=== PATIENT | female | born 1950 | race Caucasian/White ===

== ENCOUNTER 2016-07-18 07:22 | Day surgery (SDC) | payer MEDICARE, MEDICAID ==
[~2016-07-18 07:22] MED LIST: ACTOS45 MG PO; AMARYL 2MG TABLE2 MG PO; ASPIRIN325 M1 PO; CALCIUM 500 + D1 TA1 PO; COZAAR50 MG PO; FUROSEMIDE20 MG PO; LASIX 20MG. TAB20 MG PO; LEVOTHYROXINE0.1 MG PO; LIPITOR20 M1 PO; LORTAB 500 MG-71 TAB PO; NITROQUICK0.4 MG SL; RANITIDINE HCL150 MG PO; SEPTRA DS 800 M1 TAB PO; TRICOR145 MG PO
[2016-07-18 08:08] LABS: HEMOGLOBIN 12.9 g/dL (12.2-16.2); LYMPH # 1.7 K/mm3 (0.7-4.5); LYMPH % 26.6 % (10-50.0)
--- NOTE | 2016-07-18 11:26 | RADIOLOGY REPORT PS360 ---
CARDIAC CATHETERIZATION DATE OF CATHETERIZATION:07/18/2016 9:28 AM PROCEDURES: 1. Left heart catheterization 2. Left ventriculogram 3. Selective coronary angiogram 4. Selective angiography of the left internal mammary artery to the LAD 5. Selective engagement of the saphenous vein graft to the circumflex artery 6. FFR to the dominant right coronary artery 7. Drug-eluting stent deployment to the mid dominant right coronary artery INDICATION FOR TEST: 1. Coronary artery disease 2. History of coronary artery bypass grafting 3. Abnormal Myoview 4. Angina pectoris class III 5. Ischemic response to adenosine in the dominant right coronary artery Informed consent was obtained prior to the procedure. COMPLICATIONS: None ESTIMATED BLOOD LOSS: Less than 10 ml. TECHNIQUE: One percent lidocaine was used to anesthetize the right groin. The right femoral artery was accessed via the Seldinger technique. A 4-Pashto sheath was placed in the right femoral artery. Over a 3 J-wire a JL 4 JR4 Amplatz 1 catheter were used for the diagnostic procedure. There is a hazy at least 50% stenosis in the right coronary artery which did not meet angiographic criteria for stenting and furthermore did not correlate to the abnormal Myoview. Nevertheless patient was having worsening angina pectoris and this vessel was then subjected to adenosine to determine if the indeterminate lesion was ischemia producing. 7000 units of heparin was then administered intravenously and the 4 Pashto sheath was exchanged for a 6 Pashto sheath. After 10 minutes and during preparation and ACT was measured at 216 seconds therefore an additional 2000 units of heparin was administered intravenously. A JR4 guide catheter was placed in the ascending aorta and an FFR wire was normalized. The guide catheter was used intubate the right coronary artery and the FFR wire was placed into the posterior lateral ventricular branch. Adenosine was infused in the FFR index dropped to 0.76. This was an ischemic response to adenosine therefore 3 mm x 22 mm resolute stent was deployed at 14 niall reducing the stenosis to 40%. A 3.25 x 8 mm noncompliant U for your balloon was then placed in the mid segment of the stent at the stenotic lesion and deployed at 22 niall for 30 seconds there by reducing the stenosis to 10%. There was spasm distally therefore 800 mcg of nitroglycerin was administered intra-coronary and repeat angiography demonstrated there is excellent transitioning proximally and distally with the stent with good reduction of the focal stenotic lesion at the level of the RV marginal branch. At this point the apparatus was removed the groin was reprepped gloves were changed sheath was removed good hemostasis was achieved using Perclose device patient was transferred to the postop holding area in stable condition. The closing ACT was measured as out of range greater than 400 seconds. Effient 60 mg was given on the table prior to the resolute stent being deployed but after the ischemic response to adenosine. ANGIOGRAPHIC RESULTS: 1. The left main artery has distal 40% stenosis 2. The left anterior descending artery is proximally occluded 3. The circumflex artery gives rise to a high obtuse marginal artery probably ramus intermedius as well as 2 other medium sized obtuse marginal arteries. No significant lesion greater than 20% is identified in the obtuse marginal arteries however the true circumflex artery running in the AV groove has a 90% stenosis immediately after giving rise to the terminal obtuse marginal artery 4. The right coronary artery is a dominant vessel has proximal 10% stenosis with a 50% hazy calcified stenosis in the mid segment at the junction of the RV marginal branch. 20% stenoses are identified distally. The posterior descending artery has a proximal 20% stenosis while the posterior lateral ventricular branch has mild luminal irregularities of 10% 5. The [place] ventriculogram reveals normal ejection fraction estimated at 65% 6. The left ventricular end-diastolic pressure 10 mmHg 7. The saphenous vein graft to the left coronary artery is ostially occluded 8. The left internal mammary artery to the LAD is a widely patent graft however the LAD itself is a smaller caliber vessel with moderate diffuse vasculopathic appearance with no significant focal stenosis IMPRESSION: 1. Severe [place] coronary artery disease as described above 2. Patent [place] to a small caliber vasculopathic appearing LAD 3. Occluded saphenous vein graft to one of the coronary arteries 4. Angiographically indeterminate disease in the mid dominant right coronary artery 5. Ischemic response to adenosine involving the mid dominant right coronary artery producing FFR index of 0.76 6. Successful drug-eluting stent deployment followed by post stent deployment post dilatation with a high pressure 3.25 x 8 mm balloon 7. Persistent severe stenosis and a small circumflex artery which is not amenable either clinically or percutaneously to revascularization PLAN: 1. Effient and aspirin 2. Risk factor modification 3. High intensity stent with LDL goal less than 70 4. Referral to cardiac rehabilitation
[2016-07-18 15:26] VITALS: BP 118/54
== END 2016-07-18 15:32 | disposition home or self-care (01) ==
LOC: CATHLAB 07:22
PROVIDERS: Internal Medicine
PROC: B2131ZZ Fluoroscopy of Multiple Coronary Artery Bypass Grafts using Low Osmolar Contrast (ICD-10-PCS; 2016-07-18)
PROC: B2111ZZ Fluoroscopy of Multiple Coronary Arteries using Low Osmolar Contrast (ICD-10-PCS; 2016-07-18)
PROC: B2181ZZ Fluoroscopy of Left Internal Mammary Bypass Graft using Low Osmolar Contrast (ICD-10-PCS; 2016-07-18)
PROC: B2151ZZ Fluoroscopy of Left Heart using Low Osmolar Contrast (ICD-10-PCS; 2016-07-18)
PROC: 4A033BC Measurement of Arterial Pressure, Coronary, Percutaneous Approach (ICD-10-PCS; 2016-07-18)
PROC: 4A023N7 Measurement of Cardiac Sampling and Pressure, Left Heart, Percutaneous Approach (ICD-10-PCS; principal; 2016-07-18 08:30)
DX: I25.119 Atherosclerotic heart disease of native coronary artery with unspecified angina pectoris (principal); Z95.1 Presence of aortocoronary bypass graft; R94.39 Abnormal result of other cardiovascular function study; I25.709 Atherosclerosis of coronary artery bypass graft(s), unspecified, with unspecified angina pectoris
CPT/HCPCS: C1725; C1760; C1769; C1876; C1894; J0153; J1644; Q9967